=== PATIENT | female | born 1975 | race Two or more races ===

== ENCOUNTER 2020-10-31 11:00 | Outpatient (CLI) | payer BC, OTHER ==
[2020-10-31] MEDS ORDERED: FISH1CAP PO (12:37)
== END 2020-10-31 23:59 | disposition home or self-care (01) ==
LOC: STAR 11:00
PROVIDERS: ATTEND Obstetrics & Gynecology Female Pelvic Medicine and Reconstructive Surgery
DX: Z02.9 Encounter for administrative examinations, unspecified (principal)

== ENCOUNTER 2020-11-05 06:54 | Day surgery (SDC) | payer BC, OTHER ==
[~2020-11-05] VITALS: Ht 154.9 cm; Wt 55.4 kg
[~2020-11-05 06:54] MED LIST: BUPIVACAINE/PF 0.25% ONE; EPINEPHRINE 1 MG/ML, 1ML ONE; FISH1CAP PO
[2020-11-05] MEDS ORDERED: CHLORHEXIDINE 15 ML UDC PO ONE (07:30)
[2020-11-05] MEDS ORDERED: LACTATED RINGERS 1,000 ML IV SCH (07:30)
[2020-11-05 07:31] VITALS: BP 113/79
[2020-11-05] MEDS ORDERED: ONDANSETRON 2MG/ML, 2ML IVPush PRN (08:00)
[2020-11-05] MEDS ORDERED: LABETALOL 5MG/ML, 20ML IV PRN (08:00)
[2020-11-05] MEDS ORDERED: ACETAMINOPHEN 325 MG TABLET PO PRN (08:00)
[2020-11-05] MEDS ORDERED: EPHEDRINE 50 MG/ML, 1ML IVPush PRN (08:00)
[2020-11-05] MEDS ORDERED: FENTANYL PF 100 MCG/2ML IV PRN (08:00)
[2020-11-05] MEDS ORDERED: HYDROmorphone 1 MG/ML, 1ML INJ IVPush PRN (08:00)
[2020-11-05] MEDS ORDERED: hydrALAzine 20 MG/ML, 1ML IV PRN (08:00)
[2020-11-05] MEDS ORDERED: MEPERIDINE/PF 25MG/0.5ML IVPush PRN (08:00)
[2020-11-05] MEDS ORDERED: OXYcodone 5 MG/5 ML ORAL.SOL UDC PO PRN (08:00)
[2020-11-05] MEDS ORDERED: PROMETHAZINE 25 MG/ML, 1ML IVPush PRN (08:00)
[2020-11-05] MEDS ORDERED: FENTANYL PF 100 MCG/2ML ONE ×2 (08:20→11:22)
[2020-11-05] MEDS ORDERED: MIDAZOLAM 1 MG/ML, 2ML ONE (08:20)
[2020-11-05] MEDS ORDERED: PROPOFOL 10 MG/ML, 20ML ONE (08:28)
[2020-11-05] MEDS ORDERED: SUCCINYLCHOLINE 20 MG/ML, 10ML ONE (08:28)
[2020-11-05] MEDS ORDERED: CEFAZOLIN 1,000 MG ONE (08:28)
[2020-11-05] MEDS ORDERED: ONDANSETRON 2MG/ML, 2ML ONE (08:28)
[2020-11-05] MEDS ORDERED: DEXAMETHASONE 4 MG/ML, 1ML ONE (08:28)
[2020-11-05] MEDS ORDERED: ROCURONIUM 10MG/ML,5ML ONE (08:28)
[2020-11-05] MEDS ORDERED: KETOROLAC 30 MG/1 ML ONE (08:55)
[2020-11-05] MEDS ORDERED: LIDOCAINE-MPF 2% ,5ML ONE (08:55)
[2020-11-05] MEDS ORDERED: SUGAMMADEX 200 MG/2 ML IVPush ONE (09:12)
[2020-11-05] MEDS ORDERED: GLYCOPYRROLATE 0.2MG/1ML, 5ML ONE (09:15)
[2020-11-05] MEDS ORDERED: EPHEDRINE 50 MG/ML, 1ML ONE (10:25)
[2020-11-05] MEDS ORDERED: OXYcodone 5 MG/5 ML ORAL.SOL UDC ONE (11:16)
== END 2020-11-05 16:45 | disposition home or self-care (01) ==
LOC: OUT 06:54
PROVIDERS: ATTEND Obstetrics & Gynecology Female Pelvic Medicine and Reconstructive Surgery
DX: D25.1 Intramural leiomyoma of uterus (principal); N94.10 Unspecified dyspareunia; N80.0 Endometriosis of uterus; N72 Inflammatory disease of cervix uteri; N70.11 Chronic salpingitis; N73.6 Female pelvic peritoneal adhesions (postinfective)
CPT/HCPCS: 58554; 81025; 88307; J0171; J0330; J0690; J1100; J1885; J2250; J2405; J2704; J3010; J7120